=== PATIENT | female | born 1960 | race American Indian/Alaskan Native ===

== ENCOUNTER 2020-06-19 12:38 | Emergency (ER) | payer OTHER ==
[~2020-06-19] VITALS: Ht 162.6 cm; Wt 72.6 kg
[~2020-06-19 12:38] MED LIST: ANTIVERT25 MG PO; ASPIR-LOW81 MG PO; CALCIUM500 MG PO; FISH OIL300 MG; GLUCOPHAGE500 MG PO; GLUCOTROL XL2.5 MG PO; LEVEMIR100 UNIT/1 SQ; VICTOZA 3-0.6 MG/0.1 SQ; VIT B12; VIT D
[2020-06-19] MEDS ORDERED: TRESIBA100 UNIT/1 SQ (14:12)
[2020-06-19] MEDS ORDERED: ONDANSETRON ODT8 MG PO (15:46)
== END 2020-06-19 16:20 | disposition home or self-care (01) ==
LOC: ED 12:38
DX: B34.9 Viral infection, unspecified (principal); E11.9 Type 2 diabetes mellitus without complications; Z87.891 Personal history of nicotine dependence; Z88.5 Allergy status to narcotic agent; Z91.040 Latex allergy status; Z79.4 Long term (current) use of insulin; Z79.82 Long term (current) use of aspirin; Z79.899 Other long term (current) drug therapy
CPT/HCPCS: 80053; 81001; 85025; 87088; 96374; 96375; 99284-25; J1885; J2405; J7030

== ENCOUNTER 2021-03-14 09:59 | Emergency (ER) | payer OTHER ==
[~2021-03-14] VITALS: Ht 162.6 cm; Wt 72.6 kg
[~2021-03-14 09:59] MED LIST changes: +ONDANSETRON ODT8 MG PO; +TRESIBA100 UNIT/1 SQ
== END 2021-03-14 13:20 | disposition home or self-care (01) ==
LOC: ED 09:59
DX: U07.1 COVID-19 (principal); E11.9 Type 2 diabetes mellitus without complications; Z87.891 Personal history of nicotine dependence; Z88.5 Allergy status to narcotic agent; Z91.040 Latex allergy status; Z79.4 Long term (current) use of insulin; Z79.82 Long term (current) use of aspirin; Z79.899 Other long term (current) drug therapy; Z23 Encounter for immunization
CPT/HCPCS: 99283-25; M0243; Q0244